=== PATIENT | female | born 1970 | race Caucasian/White ===

== ENCOUNTER → 2016-09-12 | Outpatient (CLI) | payer OTHER | END | disposition home or self-care (01) | LOC: CFH 15:17 | PROVIDERS: ATTEND Family Medicine | DX: Z12.31 Encounter for screening mammogram for malignant neoplasm of breast (principal); M19.031 Primary osteoarthritis, right wrist; M85.441 Solitary bone cyst, right hand; M89.8X4 Other specified disorders of bone, hand; M77.8 Other enthesopathies, not elsewhere classified; S63.501A Unspecified sprain of right wrist, initial encounter; X58.XXXA Exposure to other specified factors, initial encounter; Y93.89 Activity, other specified; Y92.89 Other specified places as the place of occurrence of the external cause; Y99.8 Other external cause status; Z98.82 Breast implant status | CPT/HCPCS: 73221; G0202 ==